=== PATIENT | male | born 1985 | race African-American/Black ===

== ENCOUNTER 2024-07-31 08:36 | Inpatient (IN) | payer MEDICAID, MEDICARE, OTHER ==
--- NOTE | 2024-07-31 09:25 | ED ---
Psych HPI - General Source: patient, police, RN notes reviewed Mode of arrival: ambulatory Limitations: no limitations <Bernard Ramachandran - Last Filed: 07/31/24 15:26> <Farrah Blanco - Last Filed: 08/05/24 18:22> - General Chief Complaint: Psychiatric Symptoms Stated Complaint: Petition Time Seen by Provider: 07/31/24 08:47 - History of Present Illness Initial Comments: 38-year-old male presents emergency department with police for psychiatric evaluation. Patient is currently incarcerated and brought here secondary to worsening mental health issues he has a history of schizophrenia reports that he has been suicidal threatening others patient is currently petition by detention. Patient does not offer much forthcoming information. Patient states he just needs help. (Bernard Ramachandran) - Related Data Home Medications Medication Instructions Recorded Confirmed Acyclovir [Zovirax] 400 mg PO BID 07/31/24 07/31/24 Divalproex Sodium [Depakote] 500 mg PO BID 07/31/24 07/31/24 Ibuprofen [Motrin] 400 mg PO BID 07/31/24 07/31/24 Allergies Allergy/AdvReac Type Severity Reaction Status Date / Time No Known Allergies Allergy Verified 07/31/24 12:36 Review of Systems ROS Other: All systems not noted in ROS Statement are negative. <Bernard Ramachandran - Last Filed: 07/31/24 15:26> ROS Other: All systems not noted in ROS Statement are negative. <Farrah Blanco - Last Filed: 08/05/24 18:22> ROS Statement: Those systems with pertinent positive or pertinent negative responses have been documented in the HPI. Past Medical History Additional Past Medical History / Comment(s): Schizophrenia Past Psychological History: Schizophrenia Smoking Status: Current every day smoker Past Alcohol Use History: Abuse <Bernard Ramachandran - Last Filed: 07/31/24 15:26> General Exam Limitations: no limitations General appearance: alert, in no apparent distress Head exam: Present: atraumatic, normocephalic, normal inspection Eye exam: Present: normal appearance, PERRL, EOMI. Absent: scleral icterus, conjunctival injection, periorbital swelling ENT exam: Present: normal exam, mucous membranes moist Neck exam: Present: normal inspection, full ROM. Absent: tenderness, meningismus, lymphadenopathy Respiratory exam: Present: normal lung sounds bilaterally. Absent: respiratory distress, wheezes, rales, rhonchi, stridor Cardiovascular Exam: Present: regular rate, normal rhythm, normal heart sounds. Absent: systolic murmur, diastolic murmur, rubs, gallop, clicks GI/Abdominal exam: Present: soft, normal bowel sounds. Absent: distended, tenderness, guarding, rebound, rigid Neurological exam: Present: alert Psychiatric exam: Present: manic <Bernard Ramachandran M - Last Filed: 07/31/24 15:26> Course Vital Signs 07/31/24 08:43 Temperature 97.7 F Pulse Rate 64 Respiratory 22 Rate Blood Pressure 148/81 O2 Sat by Pulse 100 Oximetry Medical Decision Making <Bernard Ramachandran - Last Filed: 07/31/24 15:26> - Lab Data Result diagrams: 08/03/24 07:15 08/01/24 11:10 <BellaFarrah A - Last Filed: 08/05/24 18:22> - Medical Decision Making Was pt. sent in by a medical professional or institution (Dr. PA, FOOD SELECTOR, urgent care, hospital, or long-term...) When possible be specific @ -Penitentiary Did you speak to anyone other than the patient for history (EMS, parent, family, police, friend...)? What history was obtained from this source @ -No Did you review nursing and triage notes (agree or disagree)? Why? @ -I reviewed and agree with nursing and triage notes Were old charts reviewed (outside hosp., previous admission, EMS record, old EKG, old radiological studies, urgent care reports/EKG's, long-term records)? Report findings @ -No old charts were reviewed Differential Diagnosis (chest pain, altered mental status, abdominal pain women, abdominal pain men, vaginal bleeding, weakness, fever, dyspnea, syncope, headache, dizziness, GI bleed, back pain, seizure, CVA, palpatations, mental health, musculoskeletal)? @ -Differential Mental Health Depression, anxiety, bipolar, psychosis, schizophrenia, borderline personality, situational depression, adjustment disorder, behavioral disorder, brain tumor, malingering, substance abuse, encephalopathy, medication reaction, dementia, hypothyroidism, degenerative neurologic disorder, lupus.... This is not meant to be all-inclusive list EKG interpreted by me (3pts min.). @ -None X-rays interpreted by me (1pt min.). @ -None done CT interpreted by me (1pt min.). @ -None done U/S interpreted by me (1pt. min.). @ -None done What testing was considered but not performed or refused? (CT, X-rays, U/S, labs)? Why? @ -None What meds were considered but not given or refused? Why? @ -None Did you discuss the management of the patient with other professionals (professionals i.e. , PA, FOOD SELECTOR, lab, RT, psych nurse, licensed clinical social worker, chemical detection expert, teacher, air defence officer, correctional casework specialist)? Give summary @ - EPS evaluated the patient recommended inpatient treatment Was smoking cessation discussed for >3mins.? @ -No Was critical care preformed (if so, how long)? @ -No Were there social determinants of health that impacted care today? How? (Homelessness, low income, unemployed, alcoholism, drug addiction, transportatio n, low edu. Level, literacy, decrease access to med. care, detention, rehab)? @ -No Was there de-escalation of care discussed even if they declined (Discuss DNR or withdrawal of care, Hospice)? DNR status @ -No What co-morbidities impacted this encounter? (DM, HTN, Smoking, COPD, CAD, Cancer, CVA, ARF, Chemo, Hep., AIDS, mental health diagnosis, sleep apnea, morbid obesity)? @ -None Was patient admitted / discharged? Hospital course, mention meds given and route, prescriptions, significant lab abnormalities, going to OR and other pertinent info. @ -Admit to 3 W. Undiagnosed new problem with uncertain prognosis? @ -No Drug Therapy requiring intensive monitoring for toxicity (Heparin, Nitro, Insuli n, Cardizem)? @ -No Were any procedures done? @ -No Diagnosis/symptom? @ -Schizophrenia, acute psychosis Acute, or Chronic, or Acute on Chronic? @ -Acute Uncomplicated (without systemic symptoms) or Complicated (systemic symptoms)? @ -[Complicated Side effects of treatment? @ -No Exacerbation, Progression, or Severe Exacerbation? @ -No Poses a threat to life or bodily function? How? (Chest pain, USA, NM, pneumonia, PE, COPD, DKA, ARF, appy, cholecystitis, CVA, Diverticulitis, Homicidal, Suicidal, threat to staff... and all critical care pts) @ -No (Bernard Ramachandran) I filled out the certification on the patient (Farrah Blanco) - Lab Data Lab Results 07/31/24 07/31/24 07/31/24 Range/Units 09:49 09:49 09:56 Urine Color Colorless Urine Appearance Clear (Clear) Urine pH 7.0 (5.0-8.0) Ur Specific [place] 1.012 (1.001-1.035) Urine Protein Negative (Negative) Urine Glucose (UA) Negative (Negative) Urine Ketones Negative (Negative) Urine Blood Negative (Negative) Urine Nitrite Negative (Negative) Urine Bilirubin Negative (Negative) Urine Urobilinogen <2.0 (<2.0) mg/dL Ur Leukocyte Esterase Negative (Negative) Urine Opiates Screen Not Detected (NotDetected) Ur Oxycodone Screen Not Detected (NotDetected) Urine Methadone Screen Not Detected (NotDetected) Ur Barbiturates Screen Not Detected (NotDetected) U Tricyclic Antidepress Not Detected (NotDetected) Ur Phencyclidine Scrn Not Detected (NotDetected) Ur Amphetamines Screen Not Detected (NotDetected) U Methamphetamines Scrn Not Detected (NotDetected) U Benzodiazepines Scrn Not Detected (NotDetected) Urine Cocaine Screen Not Detected (NotDetected) U Marijuana (THC) Screen Not Detected (NotDetected) SARS-CoV-2 (PCR) Not Detected (Not Detectd) Disposition Time of Disposition: 14:10 <Bernard Ramachandran - Last Filed: 07/31/24 15:26> <Farrah Blanco - Last Filed: 08/05/24 18:22> Clinical Impression: Schizophrenia Disposition: TRANSFER TO PSYCH HOSP/UNIT Condition: Poor
[2024-07-31 10:47] LABS: Amphetamine Screen,Urine Not Detected (NotDetected); Barbiturate Screen,Urine Not Detected (NotDetected); Benzodiazepines Screen,Urine Not Detected (NotDetected); Cocaine Screen,Urine Not Detected (NotDetected); Methadone Screen, Urine Not Detected (NotDetected); Opiate Screen,Urine Not Detected (NotDetected); Oxycodone Screen, Urine Not Detected (NotDetected); Phencyclidine Screen,Urine Not Detected (NotDetected); Tricyclic Antidepressant,Urine Not Detected (NotDetected); Urn Cannabinoid Scrn Not Detected (NotDetected)
[2024-07-31] MEDS: HALOPERIDOL LACTATE 5 MG/ML 1 ML VIAL IM STA (14:41)
[2024-07-31] MEDS ORDERED: HALOPERIDOL LACTATE 5 MG/ML 1 ML VIAL IM PRN (15:22)
[2024-07-31] MEDS ORDERED: MAGNESIUM HYDROXIDE 2,400 MG/30 ML CUP PO PRN (15:22)
[2024-07-31] MEDS ORDERED: LORazepam 2 MG/ML INJ IM PRN (15:22)
[2024-07-31] MEDS: IBUPROFEN 600 MG TAB PO PRN (18:02)
[2024-07-31] MEDS: DIVALPROEX 500 MG TABLET.DR PO SCH (20:09)
[2024-07-31] MEDS: ACETAMINOPHEN TAB 325 MG TAB PO PRN (20:10)
[2024-07-31] MEDS: BENZOCAINE/MENTHOL LOZENG 1 EACH LOZENGE MUCOUS MEM PRN (21:17)
[2024-08-01] MEDS: ACYCLOVIR 200 MG CAP PO SCH (04:49)
[2024-08-01] MEDS: LORazepam 1 MG TAB PO PRN (06:23)
[2024-08-01 07:40] LABS: Appearance,Urine Clear (Clear); Bilirubin,Urine Negative (Negative); Blood,Urine Negative (Negative); Color,Urine Colorless; Glucose,Urine (UA) Negative (Negative); Ketones,Urine Negative (Negative); Leukocyte Esterase,Urine Negative (Negative); Nitrite,Urine Negative (Negative); Protein,Urine Negative (Negative); Specific Gravity,Urine 1.012 (1.001-1.035); Urobilinogen,Urine <2.0 mg/dL (<2.0)
[2024-08-01] MEDS: NICOTINE 21MG/24HR PATCH TRANSDERM SCH (10:48)
[2024-08-01 11:42] LABS: Basophils # (A) 0.02 10*3/uL (0.00-0.10); Basophils % (A) 0.5 %; Eosinophils % (A) 2.7 %; HCT 45.1 % (39.6-50.0); HGB 14.4 g/dL (13.0-17.0); Lymphocytes # (A) 1.34 10*3/uL (0.90-5.00); Lymphocytes % (A) 36.4 %; MCH 26.7 pg (27.0-32.0); MCHC 31.9 g/dL (32.0-37.0); MCV 83.7 fL (80.0-97.0); Mean Platelet Volume 10.4 fL (9.5-12.2); Monocytes # (A) 0.42 10*3/uL (0.20-1.00); Monocytes % (A) 11.4 %; Neutrophils # (A) 1.79 10*3/uL (1.80-7.70); Neutrophils % (A) 48.7 %; Platelet Count 241 10*3/uL (140-440); RBC 5.39 10*6/uL (4.40-5.60); RDW 13.9 % (11.5-14.5); WBC 3.68 10*3/uL (4.50-10.00)
[2024-08-01 11:59] LABS: ALT 29 U/L (4-49); AST 38 U/L (17-59); African American GFR (CKD) >90 (>60 ml/min/1.73 sqM); Alkaline Phosphatase 44 U/L (38-126); Anion Gap 8 mmol/L; Bilirubin, Delta 0.2 mg/dL (0.0-0.2); Bilirubin,Unconjugated 0.1 mg/dL (0.0-1.1); Blood Urea Nitrogen 14 mg/dL (9-20); Calcium 9.9 mg/dL (8.4-10.2); Carbon Dioxide 25 mmol/L (22-30); Chloride 106 mmol/L (98-107); Glucose 82 mg/dL (74-99); Non-African American GFR(CKD) >90 (>60 ml/min/1.73 sqM); Potassium 4.1 mmol/L (3.5-5.1); Sodium 139 mmol/L (137-145); Total Bilirubin 0.3 mg/dL (0.2-1.3); Total Protein 7.4 g/dL (6.3-8.2)
[2024-08-01] MEDS: haloperidoL 5 MG TAB PO PRN (13:42)
--- NOTE | 2024-08-01 17:10 | P.HP ---
Psychiatric H&P - . H&P Date: 08/01/24 History & Physical: Allergies Allergy/AdvReac Type Severity Reaction Status Date / Time No Known Allergies Allergy Verified 07/31/24 12:36 Vital Signs Temp 98.0 F 07/31/24 17:20 Pulse 62 07/31/24 17:20 Resp 17 07/31/24 17:20 BP 141/78 07/31/24 17:20 Pulse Ox 99 07/31/24 17:20 FiO2 Intake & Output 07/31/24 08/01/24 08/01/24 18:59 06:59 18:59 Weight 68.9 kg Laboratory Last Values Urine Opiates Screen Not Detected (NotDetected) 07/31/24 09:49 Ur Oxycodone Screen Not Detected (NotDetected) 07/31/24 09:49 Urine Methadone Screen Not Detected (NotDetected) 07/31/24 09:49 Ur Barbiturates Screen Not Detected (NotDetected) 07/31/24 09:49 U Tricyclic Antidepress Not Detected (NotDetected) 07/31/24 09:49 Ur Phencyclidine Scrn Not Detected (NotDetected) 07/31/24 09:49 Ur Amphetamines Screen Not Detected (NotDetected) 07/31/24 09:49 U Methamphetamines Scrn Not Detected (NotDetected) 07/31/24 09:49 U Benzodiazepines Scrn Not Detected (NotDetected) 07/31/24 09:49 Urine Cocaine Screen Not Detected (NotDetected) 07/31/24 09:49 U Marijuana (THC) Screen Not Detected (NotDetected) 07/31/24 09:49 SARS-CoV-2 (PCR) Not Detected (Not Detectd) 07/31/24 09:56 Dictation was produced using [employer] dictation software. Please excuse any grammatical, word or spelling errors. IDENTIFYING DATA: Patient is a 38 years old male with past psychiatric history of schizophrenia, and alcohol use disorder, presenting from shelter. HPI: Per chart review the patient is a 38-year-old male presents emergency department with police for psychiatric evaluation. Patient is currently incarcerated and brought here secondary to worsening mental health issues he has a history of schizophrenia reports that he has been suicidal threatening others patient is currently petition by shelter. Patient does not offer much forthcoming information. Patient states he just needs help. Per clinical certification " patient has made threats against self and staff, patient drinking fecal water." Per petition " client threatened to kill deputies, impulsive, responding to internal stimuli, drinks fecal water, throwing feces, unable to attend to his basic needs, threatening staff. Per the shelter report the inmate having aggressive behavior, spitting at the door, hitting the glass door, made threats to officers. This reported that he has been in shelter since April. Upon evaluation in the unit, the patient was laying in bed, sleeping, one-on-one staff supervision at bedside. Agreed to speak with the technical report writer in his room. He was going on and off sleep, had to call his name multiple times to open his eyes, staff reported that he received Ativan this morning. When asked about the reason for his hospitalization, he states " I was poisoned," and could not elaborate, went back to sleep, reported that he has been feeling down, sad, depressed, could not elaborate for how long, denied any current suicidal, self- harm or homicidal thoughts or behavior, could not deny any previous history of suicide homicide. When asked about auditory and visual hallucination, he states that " I know the know of the unknown." The patient was responding to internal stimuli, putting his hands in the air and writing something. Reported that he used to get angry in the past however denied any recent anger. Reported that he has been in the shelter for 1 year. Reported that he used to live with his parents. The patient reported that he is at [facility] somewhere, report ed today's date as " 08/24/2027," he went back to sleep and the interview was concluded at this time. Later in the day the technical report writer was able to speak with the patient again, who states that he has fair mood, he denied any current suicidal, self-harm or homicidal thoughts or behavior, reported that he had a suicidal attempt in 2018 after drinking bleach, reported that he has been in an inpatient psychiatric hospitals many times, reported that he was on lithium, Depakote, risperidone and many other medication however he could not recall. Reported that he does not hear any voices or see any things nobody else can at this time however he used to have auditory and visual hallucination in the past, reported that he used to see ghost in 2018. Reported that he was not sleeping while in shelter, his speech was fast in rate, mumbling at times, gets upset and mad if redirected, was going to charge at the technical report writer at times however he did not. 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 The patient was very tangential, illogical and nonsensical. When asked if he will be able to take medication, he states that " I want medication for my penis." And he could not agree to take psychotropic medication. He reported that he is and he has 3 children, reported that " they all are babies." The patient was responding to internal stimuli while interviewed. PAST PSYCHIATRIC HISTORY: - Inpatient Hospitalizations: Patient reported multiple inpatient hospitalization - Outpatient Care: Reported most likely he follow-up with [facility] - Current Psychotropics: Depakote 500 mg p.o. twice daily - Prior Psychotropics/Therapy: Patient reported Risperdal, Depakote, lithium sounds familiar - Prior Psychiatric hx: Schizophrenia - Suicidal Attempts: Patient reported that he attempted once in 2018 via drinking bleach PMH: as per ER note Additional Past Medical History / Comment(s): Schizophrenia Past Psychological History: Schizophrenia Smoking Status: Current every day smoker Past Alcohol Use History: Abuse ALLERGIES: as per EMR CHEMICAL DEPENDENCY HISTORY: as per HPI - Tobacco: Reported that he used to smoke - Alcohol: Denies - Illicit Drugs: Denies - Cannabis: Denies FAMILY PSYCHIATRIC/SUBSTANCE USE HISTORY: Denies SOCIAL HISTORY: The patient reported that he used to live with his parents and he has been in shelter for 1 year. 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 MENTAL STATUS EXAM: General Appearance: Patient appears to be stated age, the patient was sleeping in his bed then later seated in the dayroom, needed multiple redirection to wake up, directable, and attempts to cooperate at times. Patient appears to have poor hygiene and grooming. The patient gets upset when redirected Behavior: Patient is laying in bed without any agitated behavior. 1:1 staff supervision at bedside. Later on patient was seen in the dayroom, facility security officer at side. Speech: Patient's speech is mumbling, and nonpressured. Mood/Affect: Patient reports their mood is all right, affect is congruent, labile, irritable easily and constricted. Suicidality/Homicidality: Patient denies having any homicidal ideation intent or plan. Denies any suicidal ideations intent or plan Perceptions: Patient denied any current auditory or visual hallucinations, was responding to internal stimuli during the interview Though content/process: Illogical, nonsensical, patient endorsed bizarre behavior Memory and concentration: AOX3, grossly intact for the purposes of this session. Judgment and insight: poor STRENGTHS/WEAKNESSES: strength is that patient is resilient. Weakness is that patient has poor judgment and is impulsive INTELLECT: average IMPRESSIONS: Schizophrenia spectrum and other unspecified psychotic disorder Rule out bipolar disorder, manic with psychotic feature PLAN: -Patient is admitted under involuntary status to MHU for stabilization of psychiatric symptoms and safety. Patient has not signed adult voluntary form and medication consent and is placed in patient's chart. A second certification was completed and along with petition will be filed for court. -Medications : Start Risperdal 0.5 mg p.o. twice daily Continue Depakote 500 mg p.o. twice daily, Depakote level ordered -Ativan and Haldol PRN for agitation/aggression -Patient was informed of the risks, benefits and side effects of the medication and patient verbally consented to taking the medications. Patient did not signed med consent form. -Internal Medicine consult to perform medical evaluation and physical. -NRT - nicotine patch -SW on board for discharge planning. Encourage patient to participate in groups to work on coping skills. Will await deferral and court date. 08/01/24 07:39 08/01/24 08:54 08/01/24 16:46
[2024-08-01] MEDS: risperiDONE 0.5 MG TAB PO SCH (22:26)
[2024-08-02 02:18] LABS: Chol/HDL Ratio 2.24 Ratio; LDL Cholesterol,Calculated 47.6 mg/dL (0.0-131.0)
[2024-08-02] MEDS: MAG HYDROX/AL HYDROX/SIMETH 355 ML BOTTLE PO PRN (15:48)
[2024-08-02] MEDS: ARTIFICIAL TEARS-HYPROMELLOSE DROPS 15 ML BTL BOTH EYES PRN (16:20)
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
[2024-08-02] MEDS: risperiDONE 1 MG TAB PO SCH (20:19)
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
[2024-08-03 07:54] LABS: Basophils # (A) 0.03 10*3/uL (0.00-0.10); Basophils % (A) 0.6 %; Eosinophils # (A) 0.12 10*3/uL (0.04-0.35); Eosinophils % (A) 2.4 %; HCT 41.1 % (39.6-50.0); HGB 13.7 g/dL (13.0-17.0); Lymphocytes # (A) 1.58 10*3/uL (0.90-5.00); MCH 27.9 pg (27.0-32.0); MCHC 33.3 g/dL (32.0-37.0); MCV 83.7 fL (80.0-97.0); Mean Platelet Volume 11.3 fL (9.5-12.2); Monocytes # (A) 0.63 10*3/uL (0.20-1.00); Monocytes % (A) 12.4 %; Neutrophils # (A) 2.73 10*3/uL (1.80-7.70); Neutrophils % (A) 53.6 %; Platelet Count 232 10*3/uL (140-440); RBC 4.91 10*6/uL (4.40-5.60); RDW 13.8 % (11.5-14.5); WBC 5.09 10*3/uL (4.50-10.00)
[2024-08-03] MEDS: amLODIPine 5 MG TAB PO SCH (08:10)
--- NOTE | 2024-08-03 13:10 | P.PN ---
Progress Note - Text Progress Note Date: 08/03/24 Interval history: Patient was seen today in the back hallway with a one-to-one sitter. Patient was agreeable to speak to service writer advisor today, he appeared to answer most questions appropriately. He accurately described why he is here on the unit at and also claims that he is not having issues at the care home. He did briefly go over some of the charges that he has. We spoke about the court process, he has several questions about that and believes that he was "in trouble". He has mild improvement in his reality testing today. Claims that his mood and anxiety have been improving however he is superficial about this. Did not appear to be responding to internal stimuli, talking to himself. Claims that he is sleeping fairly at nighttime continues to be receiving as needed medications. Continues to be fairly unpredictable and low frustration tolerance. Denies any auditory or visual hallucinations denies any suicidal or homicidal ideations intent or plan. MENTAL STATUS EXAM: General Appearance: Patient appears to be stated age, has several tattoos, needed multiple redirection to wake up, directable, and attempts to cooperate at times. Patient appears to have mildly improving hygiene and grooming. Behavior: Patient is wandering the hallways without any agitated behavior. Speech: Patient's speech is mumbling, and nonpressured. Mood/Affect: Patient reports their mood is all right, affect is congruent, easily irritable. Suicidality/Homicidality: Patient denies having any homicidal ideation intent or plan. Denies any suicidal ideations intent or plan Perceptions: Patient denied any current auditory or visual hallucinations, was responding to internal stimuli, improving Though content/process: More goal oriented and appropriate. Focused on discharge and minimizing. Memory and concentration: AOX3, grossly intact for the purposes of this session. Judgment and insight: poor, superficial, improving mildly IMPRESSIONS: Schizophrenia spectrum and other unspecified psychotic disorder Rule out bipolar disorder, manic with psychotic feature PLAN: -Patient is admitted under involuntary status to MHU for stabilization of psychiatric symptoms and safety. Patient has not signed adult voluntary form and medication consent and is placed in patient's chart. A second certification was completed and along with petition will be filed for court. Research Associate Professor will complete a third certificate today. -Medications : increase Risperdal 1 mg p.o. tid for psychosis/mood stabilization. Plan will be to transition patient onto long-acting injection to help with compliance and stabilization of symptoms. Continue Depakote 500 mg p.o. twice daily, Depakote level ordered -Ativan and Haldol PRN for agitation/aggression -NRT - nicotine patch -SW on board for discharge planning. Encourage patient to participate in groups to work on coping skills. Will await deferral and court date. will complete a third certificate today. he is a care home hold.
[2024-08-03] MEDS: risperiDONE 1 MG TAB PO SCH (16:24)
--- NOTE | 2024-08-04 11:08 | P.PN ---
Progress Note - Text Progress Note Date: 08/04/24 Interval history: Patient was seen today in the back hallway with a one-to-one sitter. According to the nurses and staff, patient continues to be unpredictable sexually preoccupied. Patient was seen in the hallway, agreeable to speak to proposal writer. He appears to be more cooperative today, appears to have improvement in insight and judgment. We spoke more about the plan, he was fairly focused on discharge. Claims that he is willing to sign a deferral with the trademark attorney and agreed to treatment has been taking medications. Denies any depression or anxiety claims that "I feel good". He is agreeable to receive the first dose of long-acting injection today. Claims that he is sleeping fairly at nighttime, and that his appetite is improving. Continues to be fairly unpredictable and low frustration tolerance. Denies any auditory or visual hallucinations denies any suicidal or homicidal ideations intent or plan. MENTAL STATUS EXAM: General Appearance: Patient appears to be stated age, has several tattoos, needed multiple redirection to wake up, directable, and attempts to cooperate at times. Patient appears to have mildly improving hygiene and grooming. Behavior: Patient is wandering the hallways without any agitated behavior. More cooperative today, less unpredictable Speech: Patient's speech is mumbling, and nonpressured. Mood/Affect: Patient reports their mood is "fine", affect is congruent, less irritable. Suicidality/Homicidality: Patient denies having any homicidal ideation intent or plan. Denies any suicidal ideations intent or plan Perceptions: Patient denied any current auditory or visual hallucinations Though content/process: More goal oriented and appropriate. Focused on discharge, more agreeable today. Memory and concentration: AOX3, grossly intact for the purposes of this session. Judgment and insight: poor, superficial, improving mildly IMPRESSIONS: Schizophrenia spectrum and other unspecified psychotic disorder Rule out bipolar disorder, manic with psychotic feature PLAN: -Patient is admitted under involuntary status to MHU for stabilization of psychiatric symptoms and safety. Patient has not signed adult voluntary form and medication consent and is placed in patient's chart. -Medications : Risperdal 1 mg p.o. tid for psychosis/mood stabilization. Patient was okay with receiving the long-acting injection of Invega Sustenna 234 mg IM dose today. Second dose will be given on Niraj 156 mg IM prior to discharge. Continue Depakote 500 mg p.o. twice daily for mood stabilization/progression -Ativan and Haldol PRN for agitation/aggression -NRT - nicotine patch - on board for discharge planning. Encourage patient to participate in groups to work on coping skills. Patient did not defer with trademark attorney however now is agreeable to continuing with treatment and mood will ask if trademark attorney can do a deferral either today or tomorrow with patient. Court date scheduled for 08/12. Hopeful for discharge Saturday once patient receives his second dose of long- acting injection and defers.
[2024-08-04] MEDS: PALIPERIDONE IM 234 MG/1.5 ML SYG IM STA (14:10)
--- NOTE | 2024-08-05 09:50 | P.PN ---
Progress Note - Text Progress Note Date: 08/05/24 Interval history: Patient was seen today in the back hallway with a one-to-one sitter. The paulo ent wa finished brushing his teeth agreeable to speak to magazine writer in the hallway. He claims that he is doing a bit better today, claims that he received and tolerated the long-acting injection fairly well. He continues to be fairly focused on discharge, was pleading with magazine writer. Seems to have a fairly superficial insight into his need for medications and also the treatment on the unit. He was asking about having his restrictions lifted today. Claims that he slept fairly last night has been taking medications. Denies any depression or anxiety. He was upset that his mother wanted him to stay till Saturday on the unit, claims that he will talk to her. He states that his appetite is improving. Improving frustration tolerance. Denies any auditory or visual hallucinations denies any suicidal or homicidal ideations intent or plan. MENTAL STATUS EXAM: General Appearance: Patient appears to be stated age, has several tattoos, needed multiple redirection to wake up, directable, and attempts to cooperate at times. Patient appears to have mildly improving hygiene and grooming. Behavior: Patient is wandering the hallways without any agitated behavior. More cooperative today Speech: Patient's speech is mumbling, and nonpressured. Mood/Affect: Patient reports their mood is "good", affect is congruent Suicidality/Homicidality: Patient denies having any homicidal ideation intent or plan. Denies any suicidal ideations intent or plan Perceptions: Patient denied any current auditory or visual hallucinations Though content/process: More goal oriented and appropriate. Focused on dis charge, more agreeable today. Memory and concentration: AOX3, grossly intact for the purposes of this session. Judgment and insight: Chronically poor, improving mildly IMPRESSIONS: Schizophrenia spectrum and other unspecified psychotic disorder Rule out bipolar disorder, manic with psychotic feature PLAN: -Patient is admitted under involuntary status to MHU for stabilization of psychiatric symptoms and safety. Patient has not signed adult voluntary form and medication consent and is placed in patient's chart. -Medications : d/c Risperdal PO as patient is being transitioned onto ROD. Patie nt received long-acting injection of Invega Sustenna 234 mg IM dose on 08/04. Second dose will be given on Saturday 156 mg IM prior to discharge. Continue Depakote 500 mg p.o. twice daily for mood stabilization/progression -Ativan and Haldol PRN for agitation/aggression -NRT - nicotine patch - on board for discharge planning. Encourage patient to participate in groups to work on coping skills. Patient did not defer with bridges supervisor however now is agreeable to continuing with treatment and mood will ask if bridges supervisor can do a deferral either today or tomorrow with patient. Court date scheduled for 08/12. Hopeful for discharge Saturday vs saturday once patient receives his second dose of long-acting injection and defers. Renewable Energy Trader spoke with patient's mom over the phone who is his guardian states that she would like patient to remain in the hospital until Saturday when she can pick him up the safely bring him back home.
--- NOTE | 2024-08-06 11:07 | P.PN ---
Progress Note - Text Progress Note Date: 08/06/24 Interval history: Patient was seen today in the back hallway. Patient was agreeable to speak to field underwriter in the office today. He claims that he is doing better today with his mother and anxiety. Claims that the voices had been calming down for him after taking the medication. Claims that he feels that he is doing much better and was asking about discharge planning. He was agreeable to receive the second shot tomorrow prior to discharge. It appears more likely that he would be able to be discharged Saturday morning in the To go back home. We spoke about expectations and behaviors on the unit and to avoid females on the unit and no sexually inappropriate behavior. Claims that he is sleeping fairly at nighttime, eating well. Improving frustration tolerance. Denies any auditory or visual hallucinations denies any suicidal or homicidal ideations intent or plan. MENTAL STATUS EXAM: General Appearance: Patient appears to be stated age, has several tattoos, needed multiple redirection to wake up, directable, and attempts to cooperate at times. Patient appears to have mildly improving hygiene and grooming. Behavior: Patient is wandering the hallways without any agitated behavior. More cooperative today, more directable Speech: Patient's speech is mumbling, and nonpressured. Mood/Affect: Patient reports their mood is "better", affect is congruent Suicidality/Homicidality: Patient denies having any homicidal ideation intent or plan. Denies any suicidal ideations intent or plan Perceptions: Patient denied any current auditory or visual hallucinations Though content/process: More goal oriented and appropriate. Focused on discharge, more agreeable today. Memory and concentration: AOX3, grossly intact for the purposes of this session. Judgment and insight: Chronically poor, improving mildly IMPRESSIONS: Schizophrenia spectrum and other unspecified psychotic disorder Rule out bipolar disorder, manic with psychotic feature PLAN: -Patient is admitted under involuntary status to MHU for stabilization of psychiatric symptoms and safety. Patient has not signed adult voluntary form and medication consent and is placed in patient's chart. -Medications : Patient received long-acting injection of Invega Sustenna 234 mg IM dose on 08/04 and next dose will be given on Saturday 156 mg IM prior to discharge. monmthly maintenance dose of 117 mg IM will be due on 09/04 Continue Depakote 500 mg p.o. twice daily for mood stabilization/progression -Ativan and Haldol PRN for agitation/aggression -NRT - nicotine patch - on board for discharge planning. Encourage patient to participate in groups to work on coping skills. Patient did not defer with trial attorney however now is agreeable to continuing with treatment and mood will ask if trial attorney can do a deferral either today with patient. Court date scheduled for 08/12. Hopeful for discharge saturday once patient receives his second dose of long-acting injection and defers. acid conditioning worker to confirm with father discharge planning for Saturday, patient will be going in a cab back home.
[2024-08-06 11:37] VITALS: RESP 16
[2024-08-07] MEDS: HYDROCORTISONE 1% CREAM 30 GM TUBE TOPICAL PRN (11:42)
[2024-08-07] MEDS: PALIPERIDONE IM 156 MG/ML SYG IM ONE (17:40)
--- NOTE | 2024-08-07 19:28 | P.PN ---
Progress Note - Text Progress Note Date: 08/07/24 Interval history: Patient was seen today in cross-coverage for Patient was seen attending group a nd was seen in the back hallway with his 1:1 present. He claims that he is doing better today and denies any concerns. He is asking about discharge planning again today. He is agreeable to receive the second Invega Sustenna 156 mg IM injection today prior to discharge on Saturday. He denies any auditory or visual hallucinations denies any suicidal or homicidal ideation, intent or plan. MENTAL STATUS EXAM: General Appearance: Patient appears to be stated age, has several tattoos, fair hygiene and grooming. Behavior: Patient is calm without any agitated behavior. Speech: Patient's speech is mumbling, and non-pressured. Mood/Affect: Patient reports their mood is "better", affect is congruent Suicidality/Homicidality: Patient denies having any homicidal ideation intent or plan. Denies any suicidal ideations intent or plan Perceptions: Patient denied any current auditory or visual hallucinations Though content/process: Goal oriented and appropriate. Focused on discharge. Memory and concentration: AOX3, grossly intact for the purposes of this session. Judgment and insight: Chronically poor, improving mildly IMPRESSIONS: Schizophrenia spectrum and other unspecified psychotic disorder Rule out bipolar disorder, manic with psychotic feature PLAN: -Patient is admitted under involuntary status to MHU for stabilization of psychiatric symptoms and safety. -Medications: Patient received long-acting injection of Invega Sustenna 234 mg IM dose on 08/04 and second dose of 156 mg IM will be given today Saturday08/07/24 prior to discharge tomorrow Saturday. Monthly maintenance dose of 156 mg IM will be due 09/04/24. Continue Depakote 500 mg p.o. twice daily for mood stabilization/progression -Ativan and Haldol PRN for agitation/aggression -NRT - nicotine patch - on board for discharge planning. Encourage patient to participate in groups to work on coping skills. Plan is to discharge on Saturday once he received his second dose of Invega Sustenna and deferes. lubrication worker to confirm with father discharge planning for Saturday, patient will be going in a cab back home.
[2024-08-08] MEDS ORDERED: PALIPERIDONE IM 156 MG/ML SYG IM ONE (09:00)
[2024-08-08 10:11] VITALS: BP 115/63; PULSE 88; TEMP 97.8
--- NOTE | 2024-08-08 12:12 | P.DS ---
Providers Date of admission: 07/31/24 14:49 Expected date of discharge: 08/08/24 Attending physician: Edwin Ragsdale MD Consults: 07/31/24 15:22 Consult Physician Routine Consulting Provider: Wilson Dumont Consult Reason/Comments: History and Physical, New Admission Do you want consulting provider notified?: Yes Primary care physician: Stated None Patient Condition at Discharge: Poor Plan - Discharge Summary Discharge Rx Participant: No New Discharge Prescriptions: New Artificial Tears-Hypromellose [Artificial Tear Drops] 1 drops BOTH EYES QID PRN 30 Days #1 each PRN Reason: Dry Eye(S) Hydrocortisone Cream [Hydrocortisone 1% Cream] 1 applic TOPICAL BID PRN 30 Days #1 each PRN Reason: Skin Irritation Paliperidone IM [Invega Sustenna] 156 mg IM Q28D 28 Days #1 each amLODIPine [Norvasc] 5 mg PO DAILY 30 Days #30 tab Continue Ibuprofen [Motrin] 400 mg PO BID 30 Days #60 tab Acyclovir [Zovirax] 400 mg PO BID 30 Days #60 tab Divalproex Sodium [Depakote] 500 mg PO BID 30 Days #60 tab Discharge Medication List Acyclovir [Zovirax] 400 mg PO BID 30 Days #60 tab 08/07/24 [Rx] Artificial Tears-Hypromellose [Artificial Tear Drops] 1 drops BOTH EYES QID PRN 30 Days #1 each 08/07/24 [Rx] Divalproex Sodium [Depakote] 500 mg PO BID 30 Days #60 tab 08/07/24 [Rx] Hydrocortisone Cream [Hydrocortisone 1% Cream] 1 applic TOPICAL BID PRN 30 Days #1 each 08/07/24 [Rx] Ibuprofen [Motrin] 400 mg PO BID 30 Days #60 tab 08/07/24 [Rx] Paliperidone IM [Invega Sustenna] 156 mg IM Q28D 28 Days #1 each 08/07/24 [Rx] amLODIPine [Norvasc] 5 mg PO DAILY 30 Days #30 tab 08/07/24 [Rx] Follow up Appointment(s)/Referral(s): other, other [Other] - 08/11/24 1:00 pm (Intake appointment: August 11, 2024 at 1:00 pm) [facility] [Other] - 1 Week Patient Instructions/Handouts: Schizophrenia (DC), Psychotic Disorder (DC) Activity/Diet/Wound Care/Special Instructions: Avoid the use of street drugs and alcohol. Take all medications as prescribed. When you are in need of refills on your medications, please contact your medical provider and/or outpatient psychiatrist/provider to have this done. Please go to your scheduled outpatient appointment for aftercare treatment. If symptoms return or become worse, call the crisis line at and/or go to the nearest emergency room for evaluation. National Suicide Hotline [address] [facility] confidentiality statement: "The information contained in this communication, including attachments, is confidential, may be privileged, and is intended only for the use of the named recipient(s). Unauthorized use, disclosure, forwarding or copying is strictly prohibited and may be unlawful. If you have received this communication in error, please notify me IMMEDIATELY at the phone number or pager listed above.
[2024-09-03] MEDS ORDERED: PALIPERIDONE IM 156 MG/ML SYG IM SCH (09:00)
== END 2024-08-08 16:00 | disposition home or self-care (01) | DRG 750 ==
LOC: EC 08:36 → 3MHU 14:49 → EEVIPCON 14:49
PROVIDERS: ADMIT Psychiatry & Neurology Psychiatry; ATTEND Psychiatry & Neurology Psychiatry
DX: F20.0 Paranoid schizophrenia (principal); F17.200 Nicotine dependence, unspecified, uncomplicated; F32.A Depression, unspecified; I10 Essential (primary) hypertension; D72.819 Decreased white blood cell count, unspecified; J45.909 Unspecified asthma, uncomplicated; R45.851 Suicidal ideations; Z79.899 Other long term (current) drug therapy; Z28.310 Unvaccinated for COVID-19; Z28.21 Immunization not carried out because of patient refusal; Z11.52 Encounter for screening for COVID-19
CPT/HCPCS: 80053; 80061; 80164; 80306; 81003; 82075; 82248; 83036; 84443; 85025; 87635; 96372; 99285